=== PATIENT | female | born 1945 | race Caucasian/White ===

== ENCOUNTER 2018-03-10 15:16 | Inpatient (IN) | payer OTHER ==
[~2018-03-10] VITALS: Ht 160 cm; Wt 82.3 kg
[~2018-03-10 15:16] MED LIST: ADVAIR 500-501 EACH; AFRIN15 ML NS; CIPROFLOXACIN500 M1 PO; COREG25 MG PO; FLEXERIL PO; FLONASE; HYDROCHLOROTHIA25 M1; IBUPROFEN 800800 M1 PO; KLOR-CON 10 ER10 MEQ PO; MACROBID 100 M100 M1 PO; MACROBID 100 M100 M2 PO; NAPROXEN 375 M375 M1 PO; NORVASC10 MG PO; PREDNISONE 20 M20 M1 PO; SINGULAIR 10 MG10 M1; TRAMADOL 50 MG50 MG PO; VALSARTAN40 MG PO
[2018-03-10 15:20] VITALS: BP 201/96
[2018-03-10] MEDS ORDERED: HYDROCHLOROTH12.5 M2 PO (15:28)
[2018-03-10] MEDS ORDERED: VENTOLIN HFA 1818 GM INH (15:29)
[2018-03-10 16:03] LABS: ABSOLUTE EOSINOPHILS 0.4 thou/uL (0.0-0.7); ABSOLUTE LYMPHOCYTES 2.2 thou/uL (0.8-5.3); ABSOLUTE MONOCYTES 0.5 thou/uL (0.0-1.2); ABSOLUTE NEUTROPHILS 2.2 thou/uL (1.6-8.1); BASOPHILS 0.7 %; EOSINOPHILS 7.1 %; HEMATOCRIT 39.9 % (37.0-47.0); HEMOGLOBIN 13.5 gm/dL (12.0-15.0); LYMPHOCYTES 41.7 %; MCH 30.1 pg (26.0-34.0); MCHC 33.9 g/dL (28.0-37.0); MCV 88.7 fL (80.0-100.0); MONOCYTES 9.3 %; MPV 7.6 fl. (7.2-11.1); NUCLEATED RBCS 0 /100WBC; PLATELET COUNT* 165 thou/uL (150-400); POLYS 41.2 %; RDW-CV 13.4 % (10.5-14.5); WBC 5.4 thou/uL (4.0-11.0)
[2018-03-10 16:08] LABS: ANION GAP 8 mmol/L (7-16); BUN 6 mg/dL (7-18); CALCIUM 8.7 mg/dL (8.5-10.1); CHLORIDE 100 mmol/L (98-107); CO2 25 mmol/L (21-32); CREATININE 0.6 mg/dL (0.6-1.3); GLUCOSE 107 mg/dL (70-99); POTASSIUM 3.5 mmol/L (3.5-5.1); SODIUM 133 mmol/L (136-145)
[2018-03-10 16:23] LABS: ALBUMIN 3.7 g/dL (3.4-5.0); ALKALINE PHOSPHATASE 64 U/L (46-116); NT-PRO BRAIN NAT PEPTIDE 65 pg/mL (<300); SGOT 18 U/L (15-37); SGPT 29 U/L (30-65); TOTAL BILIRUBIN 0.3 mg/dL (<0.1-1.0); TOTAL PROTEIN 7.6 g/dL (6.4-8.2); TROPONIN-I LEVEL <0.06 ng/mL (<0.06)
[2018-03-10 20:07] LABS: URINE BILIRUBIN NEGATIVE (Negative); URINE BLOOD TRACE (Negative); URINE CLARITY CLEAR; URINE COLOR YELLOW; URINE GLUCOSE-RANDOM NEGATIVE (Negative); URINE KETONES NEGATIVE (Negative); URINE LEUKOCYTES-REFLEX NEGATIVE (Negative); URINE NITRITE-REFLEX NEGATIVE (Negative); URINE PROTEIN NEGATIVE (Negative); URINE SPECIFIC GRAVITY 1.015 (1.005-1.030); URINE UROBILINOGEN 0.2 E.U./dl (0.2-1.0)
[2018-03-10 20:35] VITALS: BP 168/90
[2018-03-11] VITALS: BP 152/78
[2018-03-11 04:00] VITALS: BP 147/82
[2018-03-11 04:33] LABS: HEMATOCRIT 38.1 % (37.0-47.0); MCH 30.1 pg (26.0-34.0); MCHC 34.2 g/dL (28.0-37.0); NUCLEATED RBCS 0 /100WBC; PLATELET COUNT* 154 thou/uL (150-400); RBC 4.33 mil/uL (4.20-5.00); RDW-CV 13.1 % (10.5-14.5); WBC 7.9 thou/uL (4.0-11.0)
[2018-03-11 04:41] LABS: CALCIUM 8.2 mg/dL (8.5-10.1); CREATININE 0.6 mg/dL (0.6-1.3); POTASSIUM 3.7 mmol/L (3.5-5.1)
[2018-03-11 06:44] LABS: ABSOLUTE LYMPHOCYTES 0.6 thou/uL (0.8-5.3); ABSOLUTE MONOCYTES 0.1 thou/uL (0.0-1.2); ABSOLUTE NEUTROPHILS 7.3 thou/uL (1.6-8.1); PLATELET ESTIMATE ADEQUATE
[2018-03-11 08:00] VITALS: BP 148/70
[2018-03-11 11:30] VITALS: BP 169/79
[2018-03-11 16:00] VITALS: BP 133/76
[2018-03-11 20:00] VITALS: BP 120/60
[2018-03-12] VITALS: BP 126/77
[2018-03-12 04:41] VITALS: BP 149/79
[2018-03-12 04:54] LABS: HEMATOCRIT 36.4 % (37.0-47.0); HEMOGLOBIN 12.2 gm/dL (12.0-15.0); MCH 29.9 pg (26.0-34.0); MCHC 33.5 g/dL (28.0-37.0); MCV 89.1 fL (80.0-100.0); MPV 8.4 fl. (7.2-11.1); NUCLEATED RBCS 0 /100WBC; PLATELET COUNT* 161 thou/uL (150-400); RBC 4.08 mil/uL (4.20-5.00); RDW-CV 13.6 % (10.5-14.5); WBC 17.1 thou/uL (4.0-11.0)
[2018-03-12 05:11] LABS: ALBUMIN 3.2 g/dL (3.4-5.0); CALCIUM 8.6 mg/dL (8.5-10.1); CREATININE 0.7 mg/dL (0.6-1.3); POTASSIUM 3.9 mmol/L (3.5-5.1); TOTAL BILIRUBIN 0.3 mg/dL (<0.1-1.0); TOTAL PROTEIN 6.6 g/dL (6.4-8.2)
[2018-03-12 06:48] LABS: ABSOLUTE LYMPHOCYTES 1.4 thou/uL (0.8-5.3); ABSOLUTE MONOCYTES 0.7 thou/uL (0.0-1.2); PLATELET ESTIMATE ADEQUATE
[2018-03-12 06:49] LABS: ANISOCYTOSIS 1+; POIKILOCYTOSIS 1+
[2018-03-12 08:00] VITALS: BP 151/88
--- NOTE | 2018-03-12 15:47 | EKG ---
[place] [address] ELECTROCARDIOGRAM REPORT Name: SILVIO CORNEJO Room: [address] IN .R.#: [id number] Admission: 03/10/18 Attend Phys: Juice Jurado MD Discharge: Date of : 47 Report #: [id number] THIS REPORT FOR: //name// [facility] ED Test Date: 2018-03-10 Test Time: 15:42:32 Pat Name: SILVIO CORNEJO Department: Room: Gender: Fabrication Machine Operator: Juan Francisco MACHADO : 1945 Requested By: Ginger Gonzales Order Number: [id number] MD: Rohit King Measurements Intervals [place] Rate: 86 P: 66 IA: 161 QRS: 47 QRSD: 100 T: 10 QT: 395 QTc: 473 Interpretive Statements Sinus rhythm Compared to ECG 11/04/2015 13:40:54 No significant changes Electronically Signed On 03-12-2018 15:46:56 CDT by Rohit King [email or web address] <ELECTRONICALLY SIGNED> By: Rohit King MD, [facility] 03/12/18 1546 [id number] 41 Rohit King MD, FAC /EPI
[2018-03-12 16:04] VITALS: BP 176/94
[2018-03-12 20:30] VITALS: BP 146/70
[2018-03-13 04:51] LABS: ABSOLUTE LYMPHOCYTES 0.8 thou/uL (0.8-5.3); ABSOLUTE MONOCYTES 0.4 thou/uL (0.0-1.2); ABSOLUTE NEUTROPHILS 13.7 thou/uL (1.6-8.1); HEMATOCRIT 35.5 % (37.0-47.0); HEMOGLOBIN 11.8 gm/dL (12.0-15.0); LYMPHOCYTES 5.7 %; MCH 29.8 pg (26.0-34.0); MCHC 33.3 g/dL (28.0-37.0); MCV 89.4 fL (80.0-100.0); MONOCYTES 2.9 %; MPV 8.8 fl. (7.2-11.1); NUCLEATED RBCS 0 /100WBC; PLATELET COUNT* 170 thou/uL (150-400); POLYS 91.4 %; RBC 3.97 mil/uL (4.20-5.00); RDW-CV 13.5 % (10.5-14.5)
[2018-03-13 05:03] LABS: ALBUMIN 3.1 g/dL (3.4-5.0); CALCIUM 8.5 mg/dL (8.5-10.1); CREATININE 0.7 mg/dL (0.6-1.3); POTASSIUM 3.9 mmol/L (3.5-5.1); TOTAL BILIRUBIN 0.3 mg/dL (<0.1-1.0); TOTAL PROTEIN 6.5 g/dL (6.4-8.2)
[2018-03-13 08:30] VITALS: BP 174/77
[2018-03-13 16:00] VITALS: BP 145/87
[2018-03-13 19:45] VITALS: BP 157/79
[2018-03-14 04:34] LABS: CALCIUM 8.1 mg/dL (8.5-10.1); CREATININE 0.7 mg/dL (0.6-1.3); POTASSIUM 3.7 mmol/L (3.5-5.1); TOTAL BILIRUBIN 0.4 mg/dL (<0.1-1.0)
--- NOTE | 2018-03-14 08:19 | CON ---
[address] [address] CONSULTATION Name: SILVIO CORNEJO Room: [address] IN .R.#: [id number] Admission: 03/10/18 Attend Phys: Juice Jurado MD Discharge: Date of : 47 Report #: [id number] THIS REPORT FOR: //name// CC: Juice Jurado [facility] physician/PCP SY LEONE DATE OF SERVICE: 03/11/2018 CONSULT REQUESTED BY: Juice Jurado MD INDICATION FOR CONSULTATION: Bronchial asthma exacerbation HISTORY OF PRESENT ILLNESS: This is a 72 years old female. She is a lifetime nonsmoker. She does have a long history of bronchial asthma. The patient previously reports that her asthma was well controlled. She was initially diagnosed about 10 years ago, who was well controlled until October of this year when she discontinued Advair, which she was on long-term due to financial reasons. The patient previously had discontinued Singulair, which in the past she has taken regularly. The patient therefore has been on an albuterol inhaler only ever since she has had multiple exacerbations of bronchial asthma since she discontinued Advair. She has therefore been treated with several courses of prednisone. Prednisone helps, but when she discontinues, she has another exacerbation. At this time, she, for the last several days, has been having severe shortness of breath and has been wheezing aloud, which is the reason that she eventually came to this hospital. She does have a cough as well, but there is not much sputum production. There is no chest pain. She does not describe any upper respiratory complaints. She does not state that she has heartburn; however, as discussed below, I suspect that there is a component of silent reflux. She has only mild swelling of lower extremities. She has some vague leg discomfort. She has had disturbed sleep at night. She has sleepiness during the day. REVIEW OF SYSTEMS: For 12 points is negative except as mentioned above. PAST MEDICAL HISTORY: Bronchial asthma, allergic rhinitis, gallbladder surgery, hysterectomy, back pain, stroke. 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 She is on medications consistent with a diagnosis of hypertension. I do not have a measure of her left ventricular ejection fraction or PFTs available. SOCIAL HISTORY: Lifetime nonsmoker. No known history of heavy alcohol use or illegal drug use. ALLERGIES: SHE REPORTS AN ALLERGY TO PENICILLIN. FAMILY HISTORY: No [place] [address] CONSULTATION Name: SILVIO CORNEJO Room: [address]#: [id number] Admission: 03/10/18 Attend Phys: Juice Jurado MD Discharge: Date of : 47 Report #: [id number] CURRENT MEDICATION LIST: List in [facility] reviewed. HOME MEDICATION LIST: Also in [facility] reviewed. See further discussion above regarding home medications. PHYSICAL EXAMINATION: GENERAL: She is alert, awake, and oriented. VITAL SIGNS: Has a pulse of 114 and blood pressure of 133/76. She is on 2 liters nasal cannula. She has been saturating around 94%. She is afebrile. Respiratory rate is mildly elevated to around 20. Her temperature is 36.7. HEENT: Head is normocephalic and atraumatic. Pupils are equal and reactive. There is no throat erythema. Airway is narrow around Mallampati 4. NECK: Does not show raised JVP, asymmetry, mass or lymph nodes. CHEST: There are audible wheezes that are heard without a stethoscope. On auscultation, breath sounds are bilaterally equal. Expirations are prolonged. There are both inspiratory, as well as expiratory wheezes heard. Expiratory wheezes are heard in the peripheral lung view garcia; however, there are some inspiratory wheezes, which appear to be from the upper airway. HEART: Regular, tachycardia noted. No murmur. ABDOMEN: Soft and nontender. EXTREMITIES: Lower extremities show trace edema. There is no calf tenderness. SKIN: Dry and intact. NEUROLOGICAL: Moves all extremities bilaterally equally and spontaneously with no focal deficit identified. DATA: The patient's chest x-ray from yesterday is reviewed. There are no definite infiltrates identified. LABORATORY DATA: The patient's lab work is in [facility]. This is reviewed, noted low magnesium level initially. Magnesium since then has been replaced. Her potassium is borderline normal. Sodium is on the lower side. BUN is low. Albumin is normal. Overall, this is a picture consistent with mild fluid overload. D-dimer was not elevated. Urine analysis is in [facility] reviewed. ASSESSMENT AND PLAN: 1. Bronchial asthma exacerbation. The patient discontinued her inhaled steroids due to financial reasons in October and has been having multiple exacerbations since then. I agree with current therapy with Solu-Medrol, as well as nebulized bronchodilators long-term. I recommend that in addition to p.r.n. albuterol, the patient should be on an inhaled corticosteroid, as well as Singulair long-term with or without a long-acting beta agonist. May suggest reviewing with case management assistant as to which inhaled corticosteroid could be obtained for her at a reasonable edwards. The patient does coverage with Medicare part B. One option could be to continue budesonide via nebulizer, which should be covered by Medicare part B. if ordered through a [employer] company long-term. [place] [address] CONSULTATION Name: SILVIO CORNEJO Room: [address] IN M.R.#: [id number] Admission: 03/10/18 Attend Phys: Juice Jurado MD Discharge: Date of : 47 Report #: [id number] 2. Upper airway wheezing/suspected silent gastroesophageal reflux disease/vocal cord dysfunction. She is on a proton pump inhibitor, increased it to b.i.d. 3. Mild fluid overload. I discontinued on IV fluids and ordered one dose of low-dose Lasix and Aldactone. 4. Evaluation for thromboembolic phenomena. We will go ahead and do venous Dopplers; however, this appears unlikely her D-dimer was not elevated. 5. Deep vein thrombosis prophylaxis with Lovenox. 6. Acute bronchitis. She is on Levaquin. Primarily, her symptoms are secondary to bronchospasm; however, I feel that it is reasonable to treat her with an antibiotic for a few days as well. Therefore, we will continue with Levaquin as already ordered. Thanks for this consultation. <ELECTRONICALLY SIGNED> By: Myra Conway MD 03/14/18 0819 1815 [id number] marie Calvillo MD /nt
[2018-03-14 08:24] VITALS: BP 136/72
[2018-03-14] MEDS ORDERED: SINGULAIR 10 MG10 M1 PO (09:57)
[2018-03-14] MEDS ORDERED: PROTONIX40 M1 PO (09:57)
[2018-03-14] MEDS ORDERED: PREDNISONE 10 M10 MG PO (09:58)
[2018-03-14] MEDS ORDERED: ADVAIR HFA 230M12 GM INH (09:59)
[2018-03-14 10:02] VITALS: BP 136/72
--- NOTE | 2018-03-14 14:17 | 2DMMODE ---
[place] [address] 2 D/M-MODE ECHOCARDIOGRAM Name: SILVIO CORNEJO Room: [address] IN [facility]#: [id number] Admission: 03/10/18 Attend Phys: Juice Jurado, Discharge: Date of : 47 Date of Service: 03/14/18 1416 Report #: [id number] THIS REPORT FOR: //name// APPROVED REPORT Study performed: 03/14/2018 09:42:32 EXAM: Comprehensive 2D, Doppler, and color-flow Echocardiogram Patient Location: In-Patient Room #: [facility] Status: routine BSA: 1.85 HR: 87 bpm BP: 136/72 mmHg Rhythm: NSR Other Information Study Quality: Good Indications Dyspnea 2D Dimensions LVEF(%): 76.40 (>50%) IVSd: 10.96 (7-11mm) LVOT Diam: 19.08 (18-24mm) LVDd: 45.37 mm PWd: 11.72 (7-11mm) Ascending Ao: 30.11 (22-36mm) LVDs: 24.97 (25-40mm) Aortic Root: 30.07 mm Oleary's LVEF: 76.40 % Volumes Left Atrial Volume (Systole) LA ESV Index: 37.70 mL/m2 Aortic Valve AoV Peak Giovani.: 1.25 m/s AO Peak Gr.: 6.22 mmHg LVOT Max P.90 mmHg AO Mean Gr.: 3.39 mmHg LVOT Mean P.57 mmHg LVOT Max V: 0.99 m/s AO V2 VTI: 25.43 cm LVOT Mean V: 0.56 m/s DELMI (VTI): 2.18 cm2 LVOT V1 VTI: 19.42 cm Mitral Valve E/A Ratio: 1.08 [place] [address] 2 D/M-MODE ECHOCARDIOGRAM Name: SILVIO CORNEJO Room: [address] [place] .R.#: [id number] Admission: 03/10/18 Attend Phys: Juice Jurado, Discharge: Date of : 47 Date of Service: 03/14/18 1416 Report #: [id number] MV Decel. Time: 151.25 ms MV E Max Giovani.: 0.80 m/s MV PHT: 43.86 ms MVA (PHT): 5.02 cm2 TDI E/Lateral E': 8.89 E/Medial E': 8.00 Medial E' Giovain.: 0.10 m/s Lateral E' Giovani.: 0.09 m/s Pulmonary Valve PV Peak Giovani.: 0.83 m/s PV Peak Gr.: 2.74 mmHg Tricuspid Valve TR Peak Gr.: 21.80 mmHg RVSP: 26.00 mmHg Left Ventricle The left ventricle is normal size. There is normal LV segmental wall motion. There is normal left ventricular wall thickness. Left ventricular systolic function is normal. LVEF is 60-65%. Transmitral Doppler flow pattern suggests impaired LV relaxation. Right Ventricle The right ventricle is normal size. The right ventricular systolic function is normal. Atria Left atrium is moderately dilated. The right atrium size is normal. Aortic Valve The aortic valve is normal in structure. No aortic regurgitation is present. There is no aortic valvular stenosis. Mitral Valve The mitral valve is normal in structure. Mild mitral regurgitation. No evidence of mitral valve stenosis. Tricuspid Valve The tricuspid valve is normal in structure. Trace tricuspid regurgitation. The RVSP is 26 mmHg. Pulmonic Valve The pulmonary valve is normal in structure. There is no pulmonic [place]ular [place] [address] 2 D/M-MODE ECHOCARDIOGRAM Name: SILVIO CORNEJO Room: [address] IN [facility]#: [id number] Admission: 03/10/18 Attend Phys: Juice Jurado, Discharge: Date of : 47 Date of Service: 03/14/18 1416 Report #: [id number] Great Vessels The aortic root is normal in size. IVC is normal in size and collapses with >50% inspiration Pericardium There is no pericardial effusion. <Conclusion> The left ventricle is normal size. There is normal left ventricular wall thickness. Left ventricular systolic function is normal. LVEF is 60-65%. Transmitral Doppler flow pattern suggests impaired LV relaxation. Left atrium is moderately dilated. Mild mitral regurgitation. Trace tricuspid regurgitation. The RVSP is 26 mmHg. <ELECTRONICALLY SIGNED> By: Rohit King MD, FACC 03/14/18 1416 141 1416 Rohit King MD, FACC /INF
[2018-03-14 20:20] VITALS: BP 171/81
[2018-03-15 00:26] VITALS: BP 138/60
[2018-03-15 08:00] VITALS: BP 148/71
== END 2018-03-15 10:15 | disposition home or self-care (01) | DRG 189 ==
LOC: M.ERS 15:16 → M.2W 17:19 → M.TBA-ER 17:19 → M.ORTHSURG 17:19 → M.2W 20:51 → M.ORTHSURG 03-12 12:20
PROVIDERS: Emergency Medicine; Internal Medicine Critical Care Medicine; Nurse Practitioner Family; ADMIT Internal Medicine
DX: J96.20 Acute and chronic respiratory failure, unspecified whether with hypoxia or hypercapnia (principal); R65.11 Systemic inflammatory response syndrome (SIRS) of non-infectious origin with acute organ dysfunction; J45.51 Severe persistent asthma with (acute) exacerbation; J42 Unspecified chronic bronchitis; J20.9 Acute bronchitis, unspecified; E87.70 Fluid overload, unspecified; I10 Essential (primary) hypertension; Z86.018 Personal history of other benign neoplasm; Z99.81 Dependence on supplemental oxygen; Z88.0 Allergy status to penicillin; Z79.899 Other long term (current) drug therapy; Z86.73 Personal history of transient ischemic attack (TIA), and cerebral infarction without residual deficits; Z90.710 Acquired absence of both cervix and uterus